=== PATIENT | female | born 1970 | race Caucasian/White ===

== ENCOUNTER 2020-03-30 06:02 | Inpatient (IN) | payer OTHER ==
[~2020-03-30] VITALS: Ht 167.6 cm; Wt 94.8 kg
[2020-03-30 08:58] LABS: BUN/CREATININE RATIO 25 (0-10)
[2020-03-30 10:01] LABS: HEMOGLOBIN 9.4 gm/dl (12.3-15.3); RED BLOOD COUNT 4.44 M/UL (4.00-5.10); WHITE BLOOD COUNT 7.2 K/UL (4.5-11.0)
[2020-03-31 06:39] LABS: HEMOGLOBIN 8.4 gm/dl (12.3-15.3)
[2020-03-31 06:43] LABS: RED BLOOD COUNT 3.88 M/UL (4.00-5.10); WHITE BLOOD COUNT 5.2 K/UL (4.5-11.0)
[2020-03-31 07:33] LABS: BUN/CREATININE RATIO 28 (0-10)
[2020-04-02 04:48] LABS: HEMOGLOBIN 8.4 gm/dl (12.3-15.3); RED BLOOD COUNT 3.92 M/UL (4.00-5.10)
[2020-04-02 04:55] LABS: WHITE BLOOD COUNT 7.8 K/UL (4.5-11.0)
[2020-04-02 05:15] LABS: BUN/CREATININE RATIO 37 (0-10)
[2020-04-03 05:12] LABS: RED BLOOD COUNT 4.73 M/UL (4.00-5.10); WHITE BLOOD COUNT 9.7 K/UL (4.5-11.0)
[2020-04-03 05:40] LABS: BUN/CREATININE RATIO 45 (0-10)
[2020-04-03 13:14] LABS: ORGANISM ID Not indicated. (.); SPECIMEN SOURCE Urine (.); STREPTOCOCCUS PNEUMONIAE AG Negative (Negative)
[2020-04-04 05:35] LABS: HEMOGLOBIN 10.2 gm/dl (12.3-15.3); RED BLOOD COUNT 4.78 M/UL (4.00-5.10); WHITE BLOOD COUNT 10.5 K/UL (4.5-11.0)
[2020-04-04 06:10] LABS: BUN/CREATININE RATIO 47 (0-10)
[2020-04-05 05:48] LABS: HEMOGLOBIN 10.5 gm/dl (12.3-15.3); RED BLOOD COUNT 4.91 M/UL (4.00-5.10); WHITE BLOOD COUNT 10.1 K/UL (4.5-11.0)
[2020-04-05 06:13] LABS: BUN/CREATININE RATIO 41 (0-10)
[2020-04-06 04:46] LABS: HEMOGLOBIN 10.3 gm/dl (12.3-15.3); RED BLOOD COUNT 4.82 M/UL (4.00-5.10); WHITE BLOOD COUNT 11.3 K/UL (4.5-11.0)
[2020-04-06 05:16] LABS: BUN/CREATININE RATIO 41 (0-10)
[2020-04-07 03:40] LABS: HEMOGLOBIN 10.1 gm/dl (12.3-15.3); RED BLOOD COUNT 4.69 M/UL (4.00-5.10); WHITE BLOOD COUNT 11.7 K/UL (4.5-11.0)
[2020-04-07 04:01] LABS: BUN/CREATININE RATIO 44 (0-10)
[2020-04-08 05:05] LABS: HEMOGLOBIN 9.8 gm/dl (12.3-15.3); RED BLOOD COUNT 4.51 M/UL (4.00-5.10); WHITE BLOOD COUNT 12.1 K/UL (4.5-11.0)
[2020-04-08 05:42] LABS: BUN/CREATININE RATIO 38 (0-10)
[2020-04-08] MEDS ORDERED: ELIQUIS 5 MG TAB5 MG PO (15:41)
[2020-04-08] MEDS ORDERED: IPRAT-ALBUT 0.5-3 ML NEB (15:41)
[2020-04-08] MEDS ORDERED: KEFLEX CAP 500500 MG PO ×3 (15:50→16:55)
[2020-04-08] MEDS ORDERED: MEDROL DOSEPAK 24 MG PO (15:50)
== END 2020-04-08 18:26 | disposition home or self-care (01) | DRG 871 ==
LOC: 2 EAST 07:47 → M/S 07:47
PROVIDERS: Internal Medicine; Internal Medicine Pulmonary Disease; ADMIT Internal Medicine
PROC: 8E0ZXY6 Isolation (ICD-10-PCS; 2020-03-30)
PROC: 5A1945Z Respiratory Ventilation, 24-96 Consecutive Hours (ICD-10-PCS; 2020-03-30)
PROC: 0BH17EZ Insertion of Endotracheal Airway into Trachea, Via Natural or Artificial Opening (ICD-10-PCS; 2020-03-30)
PROC: B24BZZZ Ultrasonography of Heart with Aorta (ICD-10-PCS; 2020-03-30)
PROC: 05HM33Z Insertion of Infusion Device into Right Internal Jugular Vein, Percutaneous Approach (ICD-10-PCS; 2020-03-30)
PROC: 03HB33Z Insertion of Infusion Device into Right Radial Artery, Percutaneous Approach (ICD-10-PCS; 2020-03-30)
PROC: 3E033XZ Introduction of Vasopressor into Peripheral Vein, Percutaneous Approach (ICD-10-PCS; 2020-03-30)
PROC: XW13325 Transfusion of Convalescent Plasma (Nonautologous) into Peripheral Vein, Percutaneous Approach, New Technology Group 5 (ICD-10-PCS; principal; 2020-03-31)
PROC: XW033E5 Introduction of Remdesivir Anti-infective into Peripheral Vein, Percutaneous Approach, New Technology Group 5 (ICD-10-PCS; 2020-03-31)
DX: A41.89 Other specified sepsis (principal); U07.1 COVID-19; J12.82 Pneumonia due to coronavirus disease 2019; R65.21 Severe sepsis with septic shock; J96.01 Acute respiratory failure with hypoxia; J15.211 Pneumonia due to Methicillin susceptible Staphylococcus aureus; I95.9 Hypotension, unspecified; F17.210 Nicotine dependence, cigarettes, uncomplicated; E66.9 Obesity, unspecified; K21.9 Gastro-esophageal reflux disease without esophagitis; Z98.890 Other specified postprocedural states; Z68.33 Body mass index [BMI] 33.0-33.9, adult
CPT/HCPCS: ECHO; 31500; 36415; 36600; 71045; 74018; 80053; 82300; 82550; 82553; 82728; 82803; 83605; 83615; 83735; 83880; 84100; 84484; 84702; 85025; 85027; 85379; 85384; 85610; 85730; 86140; 86900; 86901; 86927; 87070; 87077; 87081; 87086; 87186; 87205; 87278; 87899; 93306; 94002; 94003; 94640; 94660; 94664; 94760; 97116-GP-CQ; 97162; 97166; 97530-GP-CQ; A6212; J0456; J0690; J0696; J1205; J1650; J2250; J2704; J2920; J2930; J3010; J7030

== ENCOUNTER → 2020-06-04 | Outpatient (CLI) | payer OTHER ==
[~2020-06-04] MED LIST: ELIQUIS 5 MG TAB5 MG PO; IPRAT-ALBUT 0.5-3 ML NEB; KEFLEX CAP 500500 MG PO; MEDROL DOSEPAK 24 MG PO
== END ==
LOC: EXRD 11:07
DX: R06.02 Shortness of breath (principal); R91.8 Other nonspecific abnormal finding of lung field; R94.2 Abnormal results of pulmonary function studies; F17.210 Nicotine dependence, cigarettes, uncomplicated
CPT/HCPCS: 71046; 94060; 94729

== ENCOUNTER → 2020-06-20 | Outpatient (CLI) | payer OTHER | LOC: KOH-I 06-10 10:30 → CT 06-18 09:30 → KOH-I 06-18 09:30 → CT 10:21 | DX: J84.10 Pulmonary fibrosis, unspecified (principal); R09.02 Hypoxemia; R91.8 Other nonspecific abnormal finding of lung field | CPT/HCPCS: 36600; 71250; 82803 ==

== ENCOUNTER → 2020-08-11 | Outpatient (CLI) | payer OTHER | LOC: KOH-I 11:00 | DX: J84.89 Other specified interstitial pulmonary diseases (principal); B94.8 Sequelae of other specified infectious and parasitic diseases | CPT/HCPCS: 71250 ==

== ENCOUNTER 2020-11-05 11:36 | Emergency (ER) | payer OTHER ==
[2020-11-05] MEDS ORDERED: MEDROL DOSEPAK 24 MG PO (15:55)
== END 2020-11-05 16:44 | disposition home or self-care (01) ==
LOC: ER1 11:36
DX: R06.02 Shortness of breath (principal); R05 Cough; Z90.49 Acquired absence of other specified parts of digestive tract; Z20.822 Contact with and (suspected) exposure to COVID-19
CPT/HCPCS: 71046; 99285; U0002